=== PATIENT | female | born 1995 | race Caucasian/White ===

== ENCOUNTER 2019-12-16 21:20 | Emergency (ER) | payer OTHER ==
[~2019-12-16] VITALS: Ht 162.6 cm; Wt 59.0 kg
[2019-12-16 21:30] VITALS: BP_SYST 148
[2019-12-17 00:15] VITALS: BP_SYST 148
== END 2019-12-17 00:15 | disposition home or self-care (01) ==
LOC: SED 21:20
DX: M25.551 Pain in right hip (principal); V49.9XXA Car occupant (driver) (passenger) injured in unspecified traffic accident, initial encounter; Y93.89 Activity, other specified; Y92.413 State road as the place of occurrence of the external cause; Y99.8 Other external cause status
CPT/HCPCS: 81025; 99284